=== PATIENT | female | born 1960 | race African-American/Black ===

== ENCOUNTER 2016-12-14 05:20 | Inpatient (IN) | payer MEDICARE, MEDICAID ==
[~2016-12-14] VITALS: Ht 182.9 cm; Wt 90.7 kg
[~2016-12-14 05:20] MED LIST: ATOR10TA PO; Aspirin PO; CHOL400T15 MT; FOLI-43 PO; NICO1PAT6 TD
[2016-12-14] MEDS ORDERED: LACTATED RINGERS 1,000 ML IV SCH (06:45)
[2016-12-14] MEDS ORDERED: FENTANYL CITRATE/PF 50MCG/ML 5ML VIAL ONE (06:55)
[2016-12-14] MEDS ORDERED: HYDROMORPHONE HCL/PF 2MG/ML (OR) ONE (06:55)
[2016-12-14] MEDS ORDERED: GELATIN SPONGE,ABSORBABLE SZ 100 ONE (06:57)
[2016-12-14] MEDS ORDERED: NORMAL SALINE 0.9% 10 ML SYR ONE (06:57)
[2016-12-14] MEDS ORDERED: THROMBIN (BOVINE) 5000 UNITS/VIAL TOP ONE (06:57)
[2016-12-14] MEDS ORDERED: MIDAZOLAM HCL 2 MG/2 ML VIAL ONE (06:57)
[2016-12-14] MEDS ORDERED: BACITRACIN 50,000 UNITS/VIAL ONE (06:58)
[2016-12-14] MEDS ORDERED: LIDOCAINE HCL/EPINEPHRINE 0.5%-EPI 1:200,000 50 ML VIAL INFIL ONE (06:58)
[2016-12-14 07:05] LABS: CHLORIDE 105 mEq/L (98-107)
[2016-12-14 07:09] LABS: CLARITY URINE CLOUDY (CLEAR); COLOR URINE YELLOW (YELLOW); KETONES URINE NEGATIVE (NEGATIVE); LEUKOCYTE ESTERASE URINE NEGATIVE (NEGATIVE); NITRITE URINE NEGATIVE (NEGATIVE); OCCULT BLOOD URINE NEGATIVE (NEGATIVE); PROTEIN URINE NEGATIVE (NEGATIVE); SPECIFIC GRAVITY URINE 1.024 (1.005-1.030)
[2016-12-14 07:11] LABS: CARBON DIOXIDE 29 mEq/L (21-32)
[2016-12-14] MEDS ORDERED: HYDROCODONE/ACETAMINOPHEN 10/325MG TABLET PO PRN (07:45)
[2016-12-14] MEDS ORDERED: CLONIDINE 0.1MG TABLET PO PRN (07:45)
[2016-12-14] MEDS ORDERED: ACETAMINOPHEN 325MG TABLET PO PRN (07:45)
[2016-12-14] MEDS ORDERED: MORPHINE SULFATE 4 MG/ML CPJ (NOT FOR IM USE) IV PRN (07:45)
[2016-12-14] MEDS ORDERED: IPRATROPIUM/ALBUTEROL 0.5-3(2.5)MG/3ML NEB INH PRN (07:45)
[2016-12-14] MEDS ORDERED: NITROGLYCERIN 50MG PREMIX 250 ML IV ONE (08:29)
[2016-12-14] MEDS ORDERED: KCL 20MEQ/100ML PREMIX 100 ML IV NR ×2 (08:30→20:00)
[2016-12-14 08:47] LABS: BASOPHILS % 0.3 % (0.0-2.0); EOSINOPHILS % 2.3 % (0.0-5.0); HEMATOCRIT. 36.7 % (36.0-48.0); HEMOGLOBIN. 12.3 g/dL (12.0-16.0); LYMPHOCYTES % 24.6 % (20.0-50.0); MEAN CORPUSCULAR HEMOGLOBIN 31.4 pg (28.0-32.0); MEAN CORPUSCULAR VOLUME 93.9 fL (81.0-99.0); MEAN PLATELET VOLUME 7.7 fl (7.4-10.4); MONOCYTES % 5.2 % (2.0-8.0); NEUTROPHILS % 67.6 % (40.0-76.0); PLATELET 242 x1000/uL (130-400); RED BLOOD CELL COUNT 3.91 mill/uL (4.2-5.4); RED CELL DISTRIBUTION WIDTH 13.8 % (11.6-14.6)
[2016-12-14] MEDS ORDERED: CEFAZOLIN SODIUM 1000MG/VIAL ONE (10:31)
[2016-12-14] MEDS ORDERED: PROPOFOL 200MG/20ML VIAL IV ONE (10:31)
[2016-12-14] MEDS ORDERED: SODIUM CHLORIDE 0.9% 10ML VIAL ONE (10:32)
[2016-12-14] MEDS ORDERED: LIDOCAINE HCL 1% 20ML VIAL (Pyxis) INJ ONE (10:32)
[2016-12-14] MEDS ORDERED: ROCURONIUM BROMIDE 10MG/ML VIAL 5ML IV ONE (10:32)
[2016-12-14] MEDS ORDERED: PHENYLEPHRINE HCL 10 MG/ML 1ML (IV VIAL) IV ONE (10:32)
[2016-12-14] MEDS ORDERED: ESMOLOL HCL 10MG/ML 10ML VIAL IV ONE (10:32)
[2016-12-14] MEDS ORDERED: CARI350T PO (11:02)
[2016-12-14] MEDS ORDERED: FENTANYL CITRATE/PF 50MCG/ML 2ML VIAL ONE (11:06)
[2016-12-14] MEDS ORDERED: NICARDIPINE 50 MG in SODIUM CHLORIDE 0.9% 230 ML IV PRN (11:30)
[2016-12-14] MEDS ORDERED: NICARDIPINE 100 MG in SODIUM CHLORIDE 0.9% 60 ML IV PRN (11:30)
[2016-12-14] MEDS: DEXT 5%/LACTATED RINGERS 1,000 ML IV SCH (11:35)
[2016-12-14] MEDS ORDERED: NALOXONE INJ IV PRN (11:45)
[2016-12-14] MEDS ORDERED: DIPHENHYDRAMINE INJ IV PRN (11:45)
[2016-12-14] MEDS ORDERED: TRAZ-132 PO (11:48)
[2016-12-14] MEDS ORDERED: HYDR-3933 PO (11:48)
[2016-12-14] MEDS ORDERED: FURO-151 PO (11:48)
[2016-12-14] MEDS ORDERED: BACL-141 PO (11:48)
[2016-12-14] MEDS ORDERED: DULO60CA44 PO (11:48)
[2016-12-14] MEDS ORDERED: POTA10TA15 PO (11:48)
[2016-12-14] MEDS ORDERED: OMEG-95 PO (11:48)
[2016-12-14] MEDS: HYDROMORPHONE PCA 10MG/50ML IV PRN (11:55)
[2016-12-14 13:09] LABS: BASOPHILS % 0.2 % (0.0-2.0); EOSINOPHILS % 0.2 % (0.0-5.0); HEMATOCRIT. 33.4 % (36.0-48.0); HEMOGLOBIN. 11.1 g/dL (12.0-16.0); LYMPHOCYTES % 13.9 % (20.0-50.0); MEAN CORPUSCULAR HEMOGLOBIN 31.2 pg (28.0-32.0); MEAN PLATELET VOLUME 7.9 fl (7.4-10.4); MONOCYTES % 6.1 % (2.0-8.0); NEUTROPHILS % 79.6 % (40.0-76.0); PLATELET 233 x1000/uL (130-400); RED BLOOD CELL COUNT 3.55 mill/uL (4.2-5.4); RED CELL DISTRIBUTION WIDTH 13.6 % (11.6-14.6)
[2016-12-14 13:30] LABS: CARBON DIOXIDE 28 mEq/L (21-32); CHLORIDE 108 mEq/L (98-107)
[2016-12-14] MEDS ORDERED: CEFAZOLIN SODIUM 1000MG/VIAL IV SCH (14:00)
[2016-12-14] MEDS: CEFAZOLIN 1000MG PREMIX 50 ML IV SCH ×2 (14:20→22:19)
[2016-12-14] MEDS: PANTOPRAZOLE SODIUM 40 MG/VIAL IV SCH (14:20)
[2016-12-14] MEDS ORDERED: DEXTROSE 50% WATER 50ML SYRINGE IV PRN (18:00)
[2016-12-14] MEDS ORDERED: BISACODYL 10MG SUPP PR PRN (18:00)
[2016-12-14] MEDS: DEXAMETHASONE 4MG/ML 1ML VIAL IV SCH (18:03)
[2016-12-14] MEDS: BLOOD SUGAR DIAGNOSTIC STRIP TEST SCH (21:00)
[2016-12-14] MEDS: INSULIN LISPRO 100 UNITS/ML SUBCUT SCH (21:00)
[2016-12-15] MEDS: DEXAMETHASONE 4MG/ML 1ML VIAL IV SCH ×5 (00:25→23:33)
[2016-12-15] MEDS: DEXT 5%/LACTATED RINGERS 1,000 ML IV SCH (04:23)
[2016-12-15 05:25] LABS: HEMATOCRIT. 32.8 % (36.0-48.0); HEMOGLOBIN. 11.1 g/dL (12.0-16.0); MEAN CORPUSCULAR HEMOGLOBIN 32.1 pg (28.0-32.0); MEAN CORPUSCULAR VOLUME 94.7 fL (81.0-99.0); MEAN PLATELET VOLUME 8.8 fl (7.4-10.4); PLATELET 209 x1000/uL (130-400); RED BLOOD CELL COUNT 3.47 mill/uL (4.2-5.4)
[2016-12-15] MEDS: CEFAZOLIN 1000MG PREMIX 50 ML IV SCH ×3 (05:26→21:04)
[2016-12-15] MEDS: BLOOD SUGAR DIAGNOSTIC STRIP TEST SCH ×4 (05:34→21:01)
[2016-12-15 06:06] LABS: CARBON DIOXIDE 25 mEq/L (21-32); CHLORIDE 105 mEq/L (98-107)
[2016-12-15] MEDS: INSULIN LISPRO 100 UNITS/ML SUBCUT SCH ×4 (07:00→21:04)
[2016-12-15 07:04] LABS: PLATELET ESTIMATE NORMAL
[2016-12-15] MEDS: PANTOPRAZOLE SODIUM 40 MG/VIAL IV SCH (08:40)
[2016-12-15] MEDS: DIPHENHYDRAMINE 50MG/ML VIAL IV PRN ×2 (08:40→14:48)
[2016-12-15] MEDS: HYDROMORPHONE PCA 10MG/50ML IV PRN (17:14)
[2016-12-15] MEDS: ONDANSETRON INJ IV PRN ×2 (18:22→23:43)
[2016-12-16] MEDS: CEFAZOLIN 1000MG PREMIX 50 ML IV SCH ×2 (05:40→13:14)
[2016-12-16] MEDS: DEXAMETHASONE 4MG/ML 1ML VIAL IV SCH ×3 (05:40→18:39)
[2016-12-16] MEDS: BLOOD SUGAR DIAGNOSTIC STRIP TEST SCH ×4 (06:09→21:26)
[2016-12-16] MEDS: INSULIN LISPRO 100 UNITS/ML SUBCUT SCH ×4 (06:11→21:38)
[2016-12-16] MEDS: DOCUSATE SODIUM 250MG CAPSULE PO NR ×2 (10:30→12:17)
[2016-12-16] MEDS ORDERED: CARISOPRODOL 350 MG TABLET PO PRN (10:30)
[2016-12-16] MEDS ORDERED: HYDROCODONE/ACETAMINOPHEN 5/325MG TABLET PO PRN (10:30)
[2016-12-16] MEDS ORDERED: MORPHINE SULFATE 2 MG/ML CPJ (NOT FOR IM USE) IV PRN (10:30)
[2016-12-16 11:38] LABS: BASOPHILS % 0.1 % (0.0-2.0); HEMATOCRIT. 31.7 % (36.0-48.0); HEMOGLOBIN. 10.7 g/dL (12.0-16.0); LYMPHOCYTES % 10.2 % (20.0-50.0); MEAN CORPUSCULAR HEMOGLOBIN 31.7 pg (28.0-32.0); MEAN CORPUSCULAR VOLUME 93.9 fL (81.0-99.0); MEAN PLATELET VOLUME 8.3 fl (7.4-10.4); MONOCYTES % 6.6 % (2.0-8.0); NEUTROPHILS % 83.1 % (40.0-76.0); PLATELET 229 x1000/uL (130-400); RED BLOOD CELL COUNT 3.37 mill/uL (4.2-5.4); RED CELL DISTRIBUTION WIDTH 13.6 % (11.6-14.6)
[2016-12-16 11:55] LABS: CARBON DIOXIDE 29 mEq/L (21-32); CHLORIDE 103 mEq/L (98-107)
[2016-12-16] MEDS ORDERED: DULOXETINE HCL 20MG DR CAPSULE PO SCH (12:00)
[2016-12-16] MEDS: ONDANSETRON HCL 4MG/2ML VIAL IV PRN ×2 (12:17→20:49)
[2016-12-16] MEDS: OXYCODONE HCL/ACETAMINOPHEN 5/325MG TABLET PO PRN ×2 (12:18→20:50)
[2016-12-16] MEDS: LACTOBACILLUS GG CAPSULE PO SCH (12:23)
[2016-12-16] MEDS: DIPHENHYDRAMINE 50MG/ML VIAL IV PRN ×2 (13:07→17:12)
[2016-12-16] MEDS: DEXT 5%/LACTATED RINGERS 1,000 ML IV SCH (16:28)
[2016-12-16] MEDS: HYDROCODONE/ACETAMINOPHEN 10/325MG TABLET PO PRN (17:13)
[2016-12-17] MEDS: HYDROCODONE/ACETAMINOPHEN 10/325MG TABLET PO PRN (03:01)
[2016-12-17] MEDS: DEXAMETHASONE 4MG/ML 1ML VIAL IV SCH ×4 (03:07→21:13)
[2016-12-17] MEDS: DIPHENHYDRAMINE 50MG/ML VIAL IV PRN ×4 (03:08→21:14)
[2016-12-17] MEDS: BLOOD SUGAR DIAGNOSTIC STRIP TEST SCH ×4 (06:38→21:14)
[2016-12-17] MEDS: OXYCODONE HCL/ACETAMINOPHEN 5/325MG TABLET PO PRN ×3 (06:39→18:19)
[2016-12-17 07:13] LABS: BASOPHILS % 0.1 % (0.0-2.0); HEMATOCRIT. 32.6 % (36.0-48.0); LYMPHOCYTES % 11.1 % (20.0-50.0); MEAN CORPUSCULAR HEMOGLOBIN 31.7 pg (28.0-32.0); MEAN CORPUSCULAR VOLUME 94.1 fL (81.0-99.0); MEAN PLATELET VOLUME 8.8 fl (7.4-10.4); MONOCYTES % 5.3 % (2.0-8.0); NEUTROPHILS % 83.5 % (40.0-76.0); PLATELET 235 x1000/uL (130-400); RED BLOOD CELL COUNT 3.46 mill/uL (4.2-5.4); RED CELL DISTRIBUTION WIDTH 13.9 % (11.6-14.6)
[2016-12-17 07:15] LABS: CARBON DIOXIDE 30 mEq/L (21-32); CHLORIDE 102 mEq/L (98-107)
[2016-12-17] MEDS: LACTOBACILLUS GG CAPSULE PO SCH (08:30)
[2016-12-17] MEDS: DOCUSATE SODIUM 250MG CAPSULE PO SCH (08:30)
[2016-12-17] MEDS: INSULIN LISPRO 100 UNITS/ML SUBCUT SCH ×4 (08:31→22:31)
[2016-12-17] MEDS: DULOXETINE HCL 30MG DR CAPSULE PO SCH (11:12)
[2016-12-17] MEDS: DEXT 5%/LACTATED RINGERS 1,000 ML IV SCH (11:13)
[2016-12-17] MEDS: ONDANSETRON HCL 4MG/2ML VIAL IV PRN (12:14)
[2016-12-17] MEDS: GABAPENTIN 300MG CAPSULE PO SCH (21:14)
[2016-12-18] MEDS: OXYCODONE HCL/ACETAMINOPHEN 5/325MG TABLET PO PRN ×4 (01:08→19:17)
[2016-12-18] MEDS: DEXAMETHASONE 4MG/ML 1ML VIAL IV SCH ×4 (01:08→19:16)
[2016-12-18] MEDS: DIPHENHYDRAMINE 50MG/ML VIAL IV PRN ×3 (03:36→22:45)
[2016-12-18] MEDS: BLOOD SUGAR DIAGNOSTIC STRIP TEST SCH ×4 (07:08→21:57)
[2016-12-18] MEDS: INSULIN LISPRO 100 UNITS/ML SUBCUT SCH ×4 (07:14→23:40)
[2016-12-18] MEDS: DULOXETINE HCL 30MG DR CAPSULE PO SCH (08:41)
[2016-12-18] MEDS: LACTOBACILLUS GG CAPSULE PO SCH (08:41)
[2016-12-18] MEDS: DOCUSATE SODIUM 250MG CAPSULE PO SCH (08:41)
[2016-12-18] MEDS: DEXT 5%/LACTATED RINGERS 1,000 ML IV SCH (11:24)
[2016-12-18] MEDS ORDERED: NA PHOS,M-B/NA PHOS,DI-BA ENEMA 118ML PR SCH (12:30)
[2016-12-18] MEDS ORDERED: BISACODYL 10MG SUPP PR PRN (12:30)
[2016-12-18] MEDS: LACTULOSE 20G/30ML UDC PO SCH ×3 (13:16→21:57)
[2016-12-18] MEDS: DOCUSATE SODIUM 100MG CAPSULE PO SCH (18:17)
[2016-12-18] MEDS ORDERED: POLYETHYLENE GLYCOL 3350 (17GM) 1 DOSE PACK PO SCH (21:00)
[2016-12-18] MEDS: GABAPENTIN 300MG CAPSULE PO SCH (21:57)
[2016-12-18] MEDS: ONDANSETRON HCL 4MG/2ML VIAL IV PRN (22:45)
[2016-12-19] MEDS: DEXAMETHASONE 4MG/ML 1ML VIAL IV SCH ×3 (02:00→12:52)
[2016-12-19] MEDS: OXYCODONE HCL/ACETAMINOPHEN 5/325MG TABLET PO PRN ×4 (02:01→17:50)
[2016-12-19] MEDS: DIPHENHYDRAMINE 50MG/ML VIAL IV PRN (02:19)
[2016-12-19] MEDS: BLOOD SUGAR DIAGNOSTIC STRIP TEST SCH ×3 (06:56→17:48)
[2016-12-19] MEDS: INSULIN LISPRO 100 UNITS/ML SUBCUT SCH ×3 (06:56→17:47)
[2016-12-19] MEDS ORDERED: NA PHOS,M-B/NA PHOS,DI-BA ENEMA 118ML PR PRN (09:00)
[2016-12-19] MEDS: DOCUSATE SODIUM 250MG CAPSULE PO SCH (09:34)
[2016-12-19] MEDS: DULOXETINE HCL 30MG DR CAPSULE PO SCH (09:35)
[2016-12-19] MEDS: LACTOBACILLUS GG CAPSULE PO SCH (09:35)
[2016-12-19] MEDS: DOCUSATE SODIUM 100MG CAPSULE PO SCH ×2 (09:35→17:00)
[2016-12-19 17:50] VITALS: BP 123/65
== END 2016-12-19 18:20 | DRG 29 ==
LOC: OR 05:20 → MICUSO 05:21 → 6EST 12-16 15:00
PROVIDERS: ADMIT Neurological Surgery; ATTEND Neurological Surgery
PROC: 00NX0ZZ Release Thoracic Spinal Cord, Open Approach (ICD-10-PCS; 2016-12-14)
PROC: 00BX0ZX Excision of Thoracic Spinal Cord, Open Approach, Diagnostic (ICD-10-PCS; principal; 2016-12-14 07:00)
DX: D32.1 Benign neoplasm of spinal meninges (principal); G95.29 Other cord compression; C81.90 Hodgkin lymphoma, unspecified, unspecified site; G82.20 Paraplegia, unspecified; D49.2 Neoplasm of unspecified behavior of bone, soft tissue, and skin; I50.9 Heart failure, unspecified; E87.6 Hypokalemia; F20.9 Schizophrenia, unspecified; F32.9 Major depressive disorder, single episode, unspecified; G89.29 Other chronic pain; M54.5 Low back pain; K59.00 Constipation, unspecified; M79.89 Other specified soft tissue disorders; I08.0 Rheumatic disorders of both mitral and aortic valves; J44.9 Chronic obstructive pulmonary disease, unspecified; M79.7 Fibromyalgia; R32 Unspecified urinary incontinence; Z79.82 Long term (current) use of aspirin; Z79.899 Other long term (current) drug therapy; Z82.49 Family history of ischemic heart disease and other diseases of the circulatory system; Z99.3 Dependence on wheelchair; Z92.3 Personal history of irradiation; Z87.891 Personal history of nicotine dependence; Z88.5 Allergy status to narcotic agent; Z88.6 Allergy status to analgesic agent; Z88.8 Allergy status to other drugs, medicaments and biological substances; Z90.710 Acquired absence of both cervix and uterus; Z79.1 Long term (current) use of non-steroidal anti-inflammatories (NSAID)
CPT/HCPCS: 36415; 72070; 72157; 80048; 81001; 82962; 85025; 86850; 86900; 88304; 88305; 88311; 88331; 93970; 97110; 97162; 97530; A4216; A6261; C1893; C9113; J0690; J1100; J1170; J1200; J1815; J2250; J2370; J2405; J2704; J3010; J3480; J3490; J7120; J7121

== ENCOUNTER 2016-12-19 17:30 | Inpatient (IN) | payer MEDICARE ==
[~2016-12-19] VITALS: Ht 182.9 cm; Wt 90.7 kg
[~2016-12-19 17:30] MED LIST changes: +BACL-141 PO; +CARI350T PO; +DULO60CA44 PO; +FURO-151 PO; +HYDR-3933 PO; +OMEG-95 PO; +POTA10TA15 PO; +TRAZ-132 PO
[2016-12-19 20:00] VITALS: BP 143/77
[2016-12-19] MEDS ORDERED: ACETAMINOPHEN 325MG TABLET PO PRN (20:30)
[2016-12-19] MEDS ORDERED: DEXTROSE 50% WATER 50ML SYRINGE IV PRN (20:30)
[2016-12-19] MEDS ORDERED: HYDROCODONE/ACETAMINOPHEN 10/325MG TABLET PO PRN (20:30)
[2016-12-19] MEDS ORDERED: CLONIDINE 0.1MG TABLET PO PRN (20:30)
[2016-12-19] MEDS ORDERED: BISACODYL 10MG SUPP PR PRN (20:30)
[2016-12-19] MEDS ORDERED: CARISOPRODOL 350 MG TABLET PO PRN (20:30)
[2016-12-19] MEDS: POLYETHYLENE GLYCOL 3350 (17GM) 1 DOSE PACK PO SCH (21:00)
[2016-12-19] MEDS ORDERED: NA PHOS,M-B/NA PHOS,DI-BA ENEMA 118ML PR PRN (21:00)
[2016-12-19] MEDS: DIPHENHYDRAMINE 25MG CAPSULE PO PRN (21:26)
[2016-12-19] MEDS: GABAPENTIN 300MG CAPSULE PO SCH (21:26)
[2016-12-19] MEDS: BLOOD SUGAR DIAGNOSTIC STRIP TEST SCH (21:26)
[2016-12-19] MEDS: INSULIN LISPRO 100 UNITS/ML SUBCUT SCH (21:43)
[2016-12-19] MEDS: DEXT 5%/LACTATED RINGERS 1,000 ML IV SCH (22:10)
[2016-12-19] MEDS: IPRATROPIUM/ALBUTEROL 0.5-3(2.5)MG/3ML NEB HHN PRN (23:20)
[2016-12-20] MEDS: DEXAMETHASONE 4MG TABLET PO SCH ×5 (01:42→23:25)
[2016-12-20] MEDS: OXYCODONE HCL/ACETAMINOPHEN 5/325MG TABLET PO PRN ×4 (01:51→21:12)
[2016-12-20 06:03] LABS: BASOPHILS % 0.1 % (0.0-2.0); EOSINOPHILS % 0.2 % (0.0-5.0); HEMATOCRIT. 33.3 % (36.0-48.0); HEMOGLOBIN. 11.2 g/dL (12.0-16.0); MEAN CORPUSCULAR HEMOGLOBIN 31.6 pg (28.0-32.0); MEAN CORPUSCULAR VOLUME 94.2 fL (81.0-99.0); NEUTROPHILS % 81.7 % (40.0-76.0); PLATELET 276 x1000/uL (130-400); RED BLOOD CELL COUNT 3.54 mill/uL (4.2-5.4); RED CELL DISTRIBUTION WIDTH 13.3 % (11.6-14.6)
[2016-12-20] MEDS: DIPHENHYDRAMINE 25MG CAPSULE PO PRN ×2 (06:22→18:00)
[2016-12-20] MEDS: BLOOD SUGAR DIAGNOSTIC STRIP TEST SCH ×4 (06:22→20:46)
[2016-12-20] MEDS: INSULIN LISPRO 100 UNITS/ML SUBCUT SCH ×4 (06:23→20:46)
[2016-12-20 06:34] LABS: CARBON DIOXIDE 31 mEq/L (21-32); CHLORIDE 99 mEq/L (98-107)
[2016-12-20] MEDS: ONDANSETRON HCL 4MG TABLET PO PRN ×2 (06:44→15:54)
[2016-12-20 07:22] LABS: PREALBUMIN 29.1 mg/dL (20.0-40.0)
[2016-12-20 08:00] VITALS: BP 106/57
[2016-12-20] MEDS: DULOXETINE HCL 30MG DR CAPSULE PO SCH (08:09)
[2016-12-20] MEDS: DOCUSATE SODIUM 250MG CAPSULE PO SCH (08:09)
[2016-12-20] MEDS: DOCUSATE SODIUM 100MG CAPSULE PO SCH ×2 (08:10→17:15)
[2016-12-20] MEDS: LACTOBACILLUS GG CAPSULE PO SCH (08:10)
[2016-12-20] MEDS: IPRATROPIUM/ALBUTEROL 0.5-3(2.5)MG/3ML NEB HHN PRN (11:15)
[2016-12-20] MEDS: LORATADINE 10MG TABLET PO SCH (14:27)
[2016-12-20] MEDS: DEXT 5%/LACTATED RINGERS 1,000 ML IV SCH (14:28)
[2016-12-20 18:35] LABS: CLARITY URINE CLEAR (CLEAR); COLOR URINE YELLOW (YELLOW); GLUCOSE URINE NEGATIVE (NEGATIVE); KETONES URINE NEGATIVE (NEGATIVE); LEUKOCYTE ESTERASE URINE TRACE (NEGATIVE); NITRITE URINE NEGATIVE (NEGATIVE); OCCULT BLOOD URINE NEGATIVE (NEGATIVE); PH URINE 7.5 (4.5-8.0); PROTEIN URINE NEGATIVE (NEGATIVE); UROBILINOGEN URINE 0.2 E.U./dL (0.2-1.0)
[2016-12-20 20:00] VITALS: BP 121/72
[2016-12-20] MEDS: POLYETHYLENE GLYCOL 3350 (17GM) 1 DOSE PACK PO SCH (20:46)
[2016-12-20] MEDS: GABAPENTIN 300MG CAPSULE PO SCH (20:46)
[2016-12-20] MEDS ORDERED: PROMETHAZINE/DEXTROMETHORPHAN 6.25-15MG/5ML BOTTLE 120ML PO PRN (21:00)
[2016-12-20] MEDS: GUAIFENESIN-DM 200MG-20MG/10ML UDC PO PRN (21:36)
[2016-12-21] MEDS: DEXAMETHASONE 4MG TABLET PO SCH ×2 (05:46→11:25)
[2016-12-21] MEDS: OXYCODONE HCL/ACETAMINOPHEN 5/325MG TABLET PO PRN ×3 (05:55→19:45)
[2016-12-21] MEDS: DEXT 5%/LACTATED RINGERS 1,000 ML IV SCH (06:22)
[2016-12-21] MEDS: BLOOD SUGAR DIAGNOSTIC STRIP TEST SCH ×4 (06:25→20:41)
[2016-12-21] MEDS: INSULIN LISPRO 100 UNITS/ML SUBCUT SCH ×4 (06:48→20:40)
[2016-12-21 08:00] VITALS: BP 132/71
[2016-12-21] MEDS: DIPHENHYDRAMINE 25MG CAPSULE PO PRN ×2 (08:41→22:27)
[2016-12-21] MEDS: DULOXETINE HCL 30MG DR CAPSULE PO SCH (08:41)
[2016-12-21] MEDS: GUAIFENESIN-DM 200MG-20MG/10ML UDC PO PRN ×3 (08:41→22:27)
[2016-12-21] MEDS: DOCUSATE SODIUM 100MG CAPSULE PO SCH ×2 (08:41→17:00)
[2016-12-21] MEDS: DOCUSATE SODIUM 250MG CAPSULE PO SCH (08:41)
[2016-12-21] MEDS: LACTOBACILLUS GG CAPSULE PO SCH (08:42)
[2016-12-21] MEDS: LORATADINE 10MG TABLET PO SCH (08:46)
[2016-12-21] MEDS ORDERED: DEXAMETHASONE 4MG TABLET PO SCH (12:00)
[2016-12-21] MEDS: ONDANSETRON HCL 4MG TABLET PO PRN (13:37)
[2016-12-21 20:00] VITALS: BP 118/59
[2016-12-21] MEDS: POLYETHYLENE GLYCOL 3350 (17GM) 1 DOSE PACK PO SCH (20:40)
[2016-12-21] MEDS: GABAPENTIN 300MG CAPSULE PO SCH (20:40)
[2016-12-21] MEDS: MUPIROCIN 2% OINT 22GM NS SCH (20:41)
[2016-12-22] VITALS (13 sets, daily range): BP systolic 79–132; BP diastolic 47–77
[2016-12-22] MEDS: OXYCODONE HCL/ACETAMINOPHEN 5/325MG TABLET PO PRN (06:06)
[2016-12-22] MEDS: GUAIFENESIN-DM 200MG-20MG/10ML UDC PO PRN ×3 (06:06→22:13)
[2016-12-22] MEDS: BLOOD SUGAR DIAGNOSTIC STRIP TEST SCH ×4 (06:07→21:59)
[2016-12-22 06:38] LABS: HEMATOCRIT. 35.8 % (36.0-48.0); HEMOGLOBIN. 12.2 g/dL (12.0-16.0); MEAN CORPUSCULAR HEMOGLOBIN 31.8 pg (28.0-32.0); MEAN CORPUSCULAR VOLUME 93.3 fL (81.0-99.0); MEAN PLATELET VOLUME 7.8 fl (7.4-10.4); PLATELET 335 x1000/uL (130-400); RED BLOOD CELL COUNT 3.83 mill/uL (4.2-5.4); RED CELL DISTRIBUTION WIDTH 13.9 % (11.6-14.6)
[2016-12-22 07:13] LABS: CARBON DIOXIDE 30 mEq/L (21-32); CHLORIDE 96 mEq/L (98-107)
[2016-12-22] MEDS: INSULIN LISPRO 100 UNITS/ML SUBCUT SCH ×4 (07:18→22:06)
[2016-12-22 07:25] LABS: HDL CHOLESTEROL 43 mg/dL (40-59); LDL CHOLESTEROL 101 mg/dL (5-100); PHOSPHORUS 2.5 mg/dL (2.5-4.9); TOTAL IRON BINDING CAPACITY 299 ug/dL (250-450)
[2016-12-22] MEDS ORDERED: LEVOFLOXACIN 500MG TABLET PO NR (08:00)
[2016-12-22 08:04] LABS: PLATELET ESTIMATE NORMAL
[2016-12-22] MEDS ORDERED: OXYCODONE HCL 5MG TABLET PO PRN ×2 (08:15)
[2016-12-22] MEDS ORDERED: NA PHOS,M-B/NA PHOS,DI-BA ENEMA 118ML PR PRN (09:00)
[2016-12-22] MEDS: OXYCODONE HCL 5MG TABLET PO SCH ×3 (09:00→17:57)
[2016-12-22] MEDS ORDERED: BISACODYL 10MG SUPP PR SCH (09:00)
[2016-12-22 09:09] LABS: FOLIC ACID (FOLATE) SERUM 8.3 ng/mL (>5.38)
[2016-12-22] MEDS: LACTOBACILLUS GG CAPSULE PO SCH (09:52)
[2016-12-22] MEDS: DEXAMETHASONE 4MG TABLET PO SCH (09:52)
[2016-12-22] MEDS: DULOXETINE HCL 30MG DR CAPSULE PO SCH (09:52)
[2016-12-22] MEDS: MUPIROCIN 2% OINT 22GM NS SCH ×2 (09:53→21:59)
[2016-12-22] MEDS: DOCUSATE SODIUM 100MG CAPSULE PO SCH ×2 (09:53→17:56)
[2016-12-22] MEDS ORDERED: SODIUM CHLORIDE 0.9% 500 ML IV NR (14:30)
[2016-12-22] MEDS: AMOXICILLIN 500 MG CAPSULE PO SCH (21:58)
[2016-12-22] MEDS: POLYETHYLENE GLYCOL 3350 (17GM) 1 DOSE PACK PO SCH (21:59)
[2016-12-22] MEDS: GABAPENTIN 300MG CAPSULE PO SCH (21:59)
[2016-12-23] MEDS: AMOXICILLIN 500 MG CAPSULE PO SCH ×3 (06:14→21:00)
[2016-12-23] MEDS: BLOOD SUGAR DIAGNOSTIC STRIP TEST SCH ×4 (06:14→20:39)
[2016-12-23] MEDS: INSULIN LISPRO 100 UNITS/ML SUBCUT SCH ×4 (06:14→21:02)
[2016-12-23 06:38] LABS: BASOPHILS % 0.2 % (0.0-2.0); EOSINOPHILS % 0.4 % (0.0-5.0); HEMATOCRIT. 37.1 % (36.0-48.0); HEMOGLOBIN. 12.5 g/dL (12.0-16.0); LYMPHOCYTES % 19.6 % (20.0-50.0); MEAN CORPUSCULAR HEMOGLOBIN 31.3 pg (28.0-32.0); MEAN CORPUSCULAR VOLUME 92.9 fL (81.0-99.0); MEAN PLATELET VOLUME 7.4 fl (7.4-10.4); MONOCYTES % 9.9 % (2.0-8.0); NEUTROPHILS % 69.9 % (40.0-76.0); PLATELET 345 x1000/uL (130-400); RED BLOOD CELL COUNT 3.99 mill/uL (4.2-5.4); RED CELL DISTRIBUTION WIDTH 13.7 % (11.6-14.6)
[2016-12-23] MEDS ORDERED: SODIUM CHLORIDE 0.9% 1,000 ML IV ONE (07:30)
[2016-12-23 08:00] VITALS: BP 106/50
[2016-12-23 08:06] LABS: CARBON DIOXIDE 30 mEq/L (21-32); CHLORIDE 98 mEq/L (98-107)
[2016-12-23] MEDS: GABAPENTIN 300MG CAPSULE PO SCH ×2 (09:00→17:58)
[2016-12-23] MEDS: LACTOBACILLUS GG CAPSULE PO SCH (09:00)
[2016-12-23] MEDS: DEXAMETHASONE 4MG TABLET PO SCH (09:00)
[2016-12-23] MEDS: OXYCODONE HCL 5MG TABLET PO SCH ×3 (09:00→17:00)
[2016-12-23] MEDS: MUPIROCIN 2% OINT 22GM NS SCH ×2 (09:00→21:01)
[2016-12-23] MEDS: DOCUSATE SODIUM 100MG CAPSULE PO SCH ×2 (09:00→17:58)
[2016-12-23] MEDS ORDERED: MELOXICAM 7.5MG TABLET PO SCH (09:00)
[2016-12-23] MEDS ORDERED: LEVOFLOXACIN 250MG TABLET PO SCH ×2 (11:00)
[2016-12-23] MEDS: GUAIFENESIN-DM 200MG-20MG/10ML UDC PO PRN (11:40)
[2016-12-23] MEDS: MELOXICAM 7.5MG TABLET PO SCH (13:30)
[2016-12-23] MEDS ORDERED: SODIUM CHLORIDE 0.9% 250 ML IV NR (20:00)
[2016-12-23 20:14] VITALS: BP 73/39
[2016-12-23] MEDS ORDERED: SODIUM CHLORIDE 0.9% 1,000 ML IV NR (20:30)
[2016-12-23] MEDS: POLYETHYLENE GLYCOL 3350 (17GM) 1 DOSE PACK PO SCH (21:00)
[2016-12-23 21:20] VITALS: BP 91/43
[2016-12-23 23:30] VITALS: BP 86/47
[2016-12-24 04:13] VITALS: BP 109/50
[2016-12-24] MEDS: AMOXICILLIN 500 MG CAPSULE PO SCH (05:50)
[2016-12-24] MEDS: BLOOD SUGAR DIAGNOSTIC STRIP TEST SCH (05:50)
[2016-12-24] MEDS: INSULIN LISPRO 100 UNITS/ML SUBCUT SCH (07:01)
[2016-12-24 07:57] VITALS: BP 94/50
[2016-12-24] MEDS: MUPIROCIN 2% OINT 22GM NS SCH (08:38)
[2016-12-24] MEDS: DEXAMETHASONE 4MG TABLET PO SCH (08:39)
[2016-12-24] MEDS: GABAPENTIN 300MG CAPSULE PO SCH (08:39)
[2016-12-24] MEDS: MELOXICAM 7.5MG TABLET PO SCH (08:39)
[2016-12-24] MEDS: LACTOBACILLUS GG CAPSULE PO SCH (08:39)
[2016-12-24] MEDS: DOCUSATE SODIUM 100MG CAPSULE PO SCH (08:39)
[2016-12-24 08:42] VITALS: BP 94/50
[2016-12-24] MEDS: OXYCODONE HCL 5MG TABLET PO SCH (08:42)
[2016-12-24 09:27] LABS: CARBON DIOXIDE 30 mEq/L (21-32); CHLORIDE 101 mEq/L (98-107)
[2016-12-24] MEDS ORDERED: ACETAMINOPHEN 500MG TABLET PO PRN (09:30)
[2016-12-24] MEDS ORDERED: SODIUM CHLORIDE 0.45% 1,000 ML IV SCH (10:45)
[2016-12-24] MEDS: IPRATROPIUM/ALBUTEROL 0.5-3(2.5)MG/3ML NEB HHN PRN (10:58)
[2016-12-24 11:20] LABS: CREATINE KINASE 28 IU/L (26-192)
[2016-12-24 12:00] LABS: CREATINE KINASE MB FRACTION < 0.5 ng/mL (0.5-3.6); TROPONIN I < 0.02 ng/mL (0.00-0.04)
[2016-12-26 08:11] LABS: 25-HYDROXY VITAMIN D3 12 ng/mL (.)
== END 2016-12-24 11:12 | disposition short-term general hospital (02) | DRG 55 ==
PROVIDERS: ADMIT Physical Medicine & Rehabilitation Spinal Cord Injury Medicine; ATTEND Internal Medicine
DX: D32.1 Benign neoplasm of spinal meninges (principal); G82.20 Paraplegia, unspecified; N39.0 Urinary tract infection, site not specified; G95.29 Other cord compression; D72.829 Elevated white blood cell count, unspecified; F20.9 Schizophrenia, unspecified; F32.9 Major depressive disorder, single episode, unspecified; I50.9 Heart failure, unspecified; R26.9 Unspecified abnormalities of gait and mobility; R73.9 Hyperglycemia, unspecified; M79.7 Fibromyalgia; K80.20 Calculus of gallbladder without cholecystitis without obstruction; I11.0 Hypertensive heart disease with heart failure; E78.5 Hyperlipidemia, unspecified; I95.9 Hypotension, unspecified; B95.62 Methicillin resistant Staphylococcus aureus infection as the cause of diseases classified elsewhere; Z85.71 Personal history of Hodgkin lymphoma; Z92.3 Personal history of irradiation; Z90.710 Acquired absence of both cervix and uterus; Z88.6 Allergy status to analgesic agent; Z91.018 Allergy to other foods; Z82.49 Family history of ischemic heart disease and other diseases of the circulatory system
CPT/HCPCS: 36415; 76705; 80048; 80053; 80061; 81001; 82270; 82306; 82550; 82553; 82607; 82728; 82746; 82962; 83036; 83540; 83550; 83735; 84100; 84134; 84443; 84484; 84630; 85025; 87077; 87086; 87186; 92610; 93005; 93970; 94640; 97110; 97112; 97163; 97166; 97530; 97535; A4565; C1893; J1815; J7030; J7040; J7050; J7070; J7121; J7620; J8540; Q0162; Q0163; A5200

== ENCOUNTER 2016-12-24 11:39 | Inpatient (IN) | payer MEDICARE ==
[~2016-12-24] VITALS: Ht 152.4 cm; Wt 88.0 kg
[2016-12-24] MEDS ORDERED: LORAZEPAM 0.5MG TABLET PO PRN (12:15)
[2016-12-24] MEDS ORDERED: DOCUSATE SODIUM 100MG CAPSULE PO PRN (12:15)
[2016-12-24] MEDS ORDERED: ONDANSETRON HCL 4MG/2ML VIAL IV PRN (12:15)
[2016-12-24] MEDS ORDERED: CLONIDINE 0.1MG TABLET PO PRN (12:15)
[2016-12-24] MEDS ORDERED: MAGNESIUM/ALUMINUM HYDROXIDE/SIMETHICONE 30ML UDC PO PRN (12:15)
[2016-12-24] MEDS ORDERED: ACETAMINOPHEN 325MG TABLET PO PRN (12:15)
[2016-12-24] MEDS ORDERED: POLYETHYLENE GLYCOL 3350 (17GM) 1 DOSE PACK PO PRN (12:15)
[2016-12-24] MEDS ORDERED: DIPHENHYDRAMINE 50MG/ML VIAL IV PRN (12:15)
[2016-12-24] MEDS ORDERED: IPRATROPIUM/ALBUTEROL 0.5-3(2.5)MG/3ML NEB INH PRN (13:00)
[2016-12-24 13:44] VITALS: BP 98/83
[2016-12-24 13:48] VITALS: BP 98/83
[2016-12-24] MEDS: OXYCODONE HCL 5MG TABLET PO PRN ×2 (15:22→21:12)
[2016-12-24] MEDS: BACLOFEN 10MG TABLET PO SCH ×2 (15:22→21:12)
[2016-12-24] MEDS: GUAIFENESIN 200MG/10ML SUGAR FREE UDC PO PRN ×2 (15:22→21:12)
[2016-12-24] MEDS: ENOXAPARIN 40MG/0.4ML SYR SUBCUT SCH (15:38)
[2016-12-24] MEDS: SODIUM CHLORIDE 0.9% 1,000 ML IV SCH ×2 (15:41→21:12)
[2016-12-24 16:00] VITALS: BP 118/60
[2016-12-24 18:00] VITALS: BP 125/73
[2016-12-24 20:00] VITALS: BP 129/61
[2016-12-24] MEDS: GABAPENTIN 300MG CAPSULE PO SCH (21:11)
[2016-12-24] MEDS: FAMOTIDINE 20MG TABLET PO SCH (21:12)
[2016-12-24] MEDS: SENNOSIDES/DOCUSATE SOD 8.6/50MG TABLET PO SCH (21:12)
[2016-12-24 22:04] VITALS: BP 112/62
[2016-12-24] MEDS: TRAZODONE HCL 100MG TABLET PO PRN (23:25)
[2016-12-25] VITALS (19 sets, daily range): BP systolic 88–135; BP diastolic 36–77
[2016-12-25] MEDS: IPRATROPIUM/ALBUTEROL 0.5-3(2.5)MG/3ML NEB HHN SCH (01:34)
[2016-12-25 06:28] LABS: HEMATOCRIT. 31.7 % (36.0-48.0); HEMOGLOBIN. 10.7 g/dL (12.0-16.0); MEAN CORPUSCULAR HEMOGLOBIN 31.6 pg (28.0-32.0); MEAN CORPUSCULAR VOLUME 93.2 fL (81.0-99.0); MEAN PLATELET VOLUME 7.3 fl (7.4-10.4); PLATELET 328 x1000/uL (130-400); RED CELL DISTRIBUTION WIDTH 13.8 % (11.6-14.6)
[2016-12-25] MEDS: BACLOFEN 10MG TABLET PO SCH ×3 (06:47→21:07)
[2016-12-25 07:21] LABS: CHLORIDE 106 mEq/L (98-107)
[2016-12-25 07:26] LABS: CARBON DIOXIDE 24 mEq/L (21-32); PHOSPHORUS 2.4 mg/dL (2.5-4.9)
[2016-12-25] MEDS: ASPIRIN 325MG EC TABLET PO SCH (09:40)
[2016-12-25] MEDS: CITALOPRAM HYDROBROMIDE 10MG TABLET PO SCH (09:40)
[2016-12-25] MEDS: ENOXAPARIN 40MG/0.4ML SYR SUBCUT SCH (09:42)
[2016-12-25] MEDS: GABAPENTIN 300MG CAPSULE PO SCH ×2 (09:44→21:07)
[2016-12-25] MEDS: SODIUM CHLORIDE 0.9% 1,000 ML IV SCH ×2 (09:46→21:07)
[2016-12-25] MEDS: GUAIFENESIN 200MG/10ML SUGAR FREE UDC PO PRN ×3 (09:57→23:25)
[2016-12-25] MEDS ORDERED: DEXAMETHASONE 4MG/ML 1ML VIAL IV NR (11:30)
[2016-12-25] MEDS ORDERED: LORAZEPAM 0.5MG TABLET PO PRN (12:15)
[2016-12-25] MEDS ORDERED: SODIUM CHLORIDE 0.9% 10ML VIAL ONE (12:43)
[2016-12-25] MEDS ORDERED: IOHEXOL-300 100 ML BOTTLE ONE (12:43)
[2016-12-25 14:10] LABS: GLUCOSE URINE NEGATIVE (NEGATIVE); KETONES URINE NEGATIVE (NEGATIVE); LEUKOCYTE ESTERASE URINE NEGATIVE (NEGATIVE); NITRITE URINE NEGATIVE (NEGATIVE); OCCULT BLOOD URINE 2+ (NEGATIVE); PROTEIN URINE NEGATIVE (NEGATIVE); SPECIFIC GRAVITY URINE 1.016 (1.005-1.030)
[2016-12-25 14:23] LABS: CLARITY URINE CLEAR (CLEAR); COLOR URINE YELLOW (YELLOW)
[2016-12-25 16:18] LABS: CREATINE KINASE 26 IU/L (26-192); CREATINE KINASE MB FRACTION < 0.5 ng/mL (0.5-3.6); TROPONIN I < 0.02 ng/mL (0.00-0.04)
[2016-12-25] MEDS: OXYCODONE HCL 5MG TABLET PO PRN (17:27)
[2016-12-25] MEDS: DEXAMETHASONE 2MG TABLET PO SCH (17:27)
[2016-12-25] MEDS: SENNOSIDES/DOCUSATE SOD 8.6/50MG TABLET PO SCH (21:07)
[2016-12-25] MEDS: FAMOTIDINE 20MG TABLET PO SCH (21:07)
[2016-12-25 23:23] LABS: CREATINE KINASE 26 IU/L (26-192); CREATINE KINASE MB FRACTION < 0.5 ng/mL (0.5-3.6); TROPONIN I < 0.02 ng/mL (0.00-0.04)
[2016-12-25] MEDS: TRAZODONE HCL 100MG TABLET PO PRN (23:25)
[2016-12-26] VITALS (11 sets, daily range): BP systolic 91–139; BP diastolic 44–69
[2016-12-26] MEDS: BACLOFEN 10MG TABLET PO SCH ×3 (06:11→21:26)
[2016-12-26] MEDS: OXYCODONE HCL 5MG TABLET PO PRN ×3 (06:12→18:18)
[2016-12-26] MEDS: DEXAMETHASONE 2MG TABLET PO SCH ×2 (07:05→18:17)
[2016-12-26 07:06] LABS: HEMATOCRIT. 32.3 % (36.0-48.0); HEMOGLOBIN. 10.8 g/dL (12.0-16.0); MEAN CORPUSCULAR HEMOGLOBIN 31.4 pg (28.0-32.0); MEAN CORPUSCULAR VOLUME 93.9 fL (81.0-99.0); MEAN PLATELET VOLUME 7.4 fl (7.4-10.4); PLATELET 374 x1000/uL (130-400); RED BLOOD CELL COUNT 3.44 mill/uL (4.2-5.4); RED CELL DISTRIBUTION WIDTH 14.1 % (11.6-14.6)
[2016-12-26 07:16] LABS: CHLORIDE 107 mEq/L (98-107)
[2016-12-26 07:25] LABS: CARBON DIOXIDE 24 mEq/L (21-32); CREATINE KINASE 24 IU/L (26-192); CREATINE KINASE MB FRACTION 1.1 ng/mL (0.5-3.6); TROPONIN I < 0.02 ng/mL (0.00-0.04)
[2016-12-26] MEDS: IPRATROPIUM/ALBUTEROL 0.5-3(2.5)MG/3ML NEB HHN SCH ×2 (08:01→15:01)
[2016-12-26] MEDS: GABAPENTIN 300MG CAPSULE PO SCH ×2 (08:45→21:23)
[2016-12-26] MEDS: CITALOPRAM HYDROBROMIDE 10MG TABLET PO SCH (08:45)
[2016-12-26] MEDS: ASPIRIN 325MG EC TABLET PO SCH (08:45)
[2016-12-26] MEDS: SODIUM CHLORIDE 0.9% 1,000 ML IV SCH ×2 (08:45→14:08)
[2016-12-26] MEDS: ENOXAPARIN 40MG/0.4ML SYR SUBCUT SCH (08:46)
[2016-12-26] MEDS: GUAIFENESIN 200MG/10ML SUGAR FREE UDC PO PRN ×2 (09:40→18:17)
[2016-12-26 11:51] LABS: PLATELET ESTIMATE NORMAL
[2016-12-26] MEDS ORDERED: NA PHOS,M-B/NA PHOS,DI-BA ENEMA 118ML PR PRN (13:00)
[2016-12-26] MEDS: SENNOSIDES/DOCUSATE SOD 8.6/50MG TABLET PO SCH (21:00)
[2016-12-26] MEDS: POLYETHYLENE GLYCOL 3350 (17GM) 1 DOSE PACK PO SCH (21:23)
[2016-12-26] MEDS: FAMOTIDINE 20MG TABLET PO SCH (21:23)
[2016-12-26] MEDS: TRAZODONE HCL 100MG TABLET PO PRN (21:36)
[2016-12-27] VITALS (12 sets, daily range): BP systolic 106–146; BP diastolic 50–75
[2016-12-27] MEDS: IPRATROPIUM/ALBUTEROL 0.5-3(2.5)MG/3ML NEB HHN SCH ×3 (01:00→16:23)
[2016-12-27] MEDS: SODIUM CHLORIDE 0.9% 1,000 ML IV SCH ×3 (04:33→22:13)
[2016-12-27] MEDS: DEXAMETHASONE 2MG TABLET PO SCH ×2 (06:08→17:18)
[2016-12-27] MEDS: BACLOFEN 10MG TABLET PO SCH ×3 (06:12→21:59)
[2016-12-27 06:37] LABS: CARBON DIOXIDE 26 mEq/L (21-32); CHLORIDE 108 mEq/L (98-107); PHOSPHORUS 2.9 mg/dL (2.5-4.9)
[2016-12-27 06:44] LABS: BASOPHILS % 0.1 % (0.0-2.0); EOSINOPHILS % 0.1 % (0.0-5.0); HEMATOCRIT. 29.9 % (36.0-48.0); HEMOGLOBIN. 10.2 g/dL (12.0-16.0); LYMPHOCYTES % 16.5 % (20.0-50.0); MEAN CORPUSCULAR HEMOGLOBIN 31.8 pg (28.0-32.0); MEAN CORPUSCULAR VOLUME 93.5 fL (81.0-99.0); MEAN PLATELET VOLUME 7.4 fl (7.4-10.4); MONOCYTES % 5.4 % (2.0-8.0); NEUTROPHILS % 77.9 % (40.0-76.0); PLATELET 375 x1000/uL (130-400); RED CELL DISTRIBUTION WIDTH 14.4 % (11.6-14.6)
[2016-12-27] MEDS: GUAIFENESIN 200MG/10ML SUGAR FREE UDC PO PRN ×2 (08:10→17:23)
[2016-12-27] MEDS: GABAPENTIN 300MG CAPSULE PO SCH ×2 (08:11→21:59)
[2016-12-27] MEDS: BISACODYL 10MG SUPP PR SCH (08:11)
[2016-12-27] MEDS: ASPIRIN 325MG EC TABLET PO SCH (08:11)
[2016-12-27] MEDS: OXYCODONE HCL 5MG TABLET PO PRN ×2 (08:11→17:24)
[2016-12-27] MEDS: CITALOPRAM HYDROBROMIDE 10MG TABLET PO SCH (08:11)
[2016-12-27] MEDS: ENOXAPARIN 40MG/0.4ML SYR SUBCUT SCH (08:12)
[2016-12-27 13:16] LABS: PLATELET ESTIMATE SLIGHTLY INCREASED
[2016-12-27] MEDS: FAMOTIDINE 20MG TABLET PO SCH (21:59)
[2016-12-27] MEDS: POLYETHYLENE GLYCOL 3350 (17GM) 1 DOSE PACK PO SCH (21:59)
[2016-12-27] MEDS: SENNOSIDES/DOCUSATE SOD 8.6/50MG TABLET PO SCH (21:59)
[2016-12-27] MEDS: LORAZEPAM 0.5MG TABLET PO PRN (22:11)
[2016-12-28] VITALS (11 sets, daily range): BP systolic 106–148; BP diastolic 54–75
[2016-12-28] MEDS ORDERED: LORAZEPAM 0.5MG TABLET PO PRN (00:15)
[2016-12-28] MEDS: TRAZODONE HCL 100MG TABLET PO PRN (01:02)
[2016-12-28] MEDS: GUAIFENESIN 200MG/10ML SUGAR FREE UDC PO PRN (05:04)
[2016-12-28] MEDS: BACLOFEN 10MG TABLET PO SCH ×2 (05:05→14:16)
[2016-12-28] MEDS: DEXAMETHASONE 2MG TABLET PO SCH ×2 (05:05→17:37)
[2016-12-28 06:00] LABS: CLARITY URINE CLEAR (CLEAR); COLOR URINE YELLOW (YELLOW); GLUCOSE URINE NEGATIVE (NEGATIVE); KETONES URINE NEGATIVE (NEGATIVE); LEUKOCYTE ESTERASE URINE NEGATIVE (NEGATIVE); NITRITE URINE NEGATIVE (NEGATIVE); OCCULT BLOOD URINE NEGATIVE (NEGATIVE); PH URINE 5.5 (4.5-8.0); PROTEIN URINE NEGATIVE (NEGATIVE); SPECIFIC GRAVITY URINE 1.007 (1.005-1.030); UROBILINOGEN URINE 0.2 E.U./dL (0.2-1.0)
[2016-12-28] MEDS: SODIUM CHLORIDE 0.9% 1,000 ML IV SCH ×2 (06:08→16:08)
[2016-12-28 06:43] LABS: HEMOGLOBIN. 9.9 g/dL (12.0-16.0); MEAN CORPUSCULAR HEMOGLOBIN 31.3 pg (28.0-32.0); MEAN CORPUSCULAR VOLUME 95.1 fL (81.0-99.0); MEAN PLATELET VOLUME 7.6 fl (7.4-10.4); PLATELET 371 x1000/uL (130-400); RED BLOOD CELL COUNT 3.16 mill/uL (4.2-5.4); RED CELL DISTRIBUTION WIDTH 14.3 % (11.6-14.6)
[2016-12-28 06:59] LABS: CARBON DIOXIDE 27 mEq/L (21-32); CHLORIDE 108 mEq/L (98-107)
[2016-12-28] MEDS ORDERED: HYDROCODONE/ACETAMINOPHEN 10/325MG TABLET PO PRN (07:15)
[2016-12-28] MEDS ORDERED: ACETAMINOPHEN 325MG TABLET PO PRN (07:15)
[2016-12-28] MEDS: BISACODYL 10MG SUPP PR SCH (08:53)
[2016-12-28] MEDS: GABAPENTIN 300MG CAPSULE PO SCH (08:53)
[2016-12-28] MEDS: ENOXAPARIN 40MG/0.4ML SYR SUBCUT SCH (08:55)
[2016-12-28] MEDS: CITALOPRAM HYDROBROMIDE 10MG TABLET PO SCH (08:57)
[2016-12-28] MEDS ORDERED: ASPIRIN 81MG TABLET PO SCH (09:00)
[2016-12-28] MEDS ORDERED: OXYCODONE HCL 5MG TABLET PO PRN (14:00)
[2016-12-28 16:33] LABS: PLATELET ESTIMATE NORMAL
[2016-12-28] MEDS: LORAZEPAM 0.5MG TABLET PO PRN (18:41)
== END 2016-12-28 18:50 | DRG 644 ==
LOC: 5EST 11:39
PROVIDERS: ADMIT Internal Medicine; ATTEND Internal Medicine
DX: E27.40 Unspecified adrenocortical insufficiency (principal); C81.90 Hodgkin lymphoma, unspecified, unspecified site; G82.20 Paraplegia, unspecified; R07.9 Chest pain, unspecified; I95.89 Other hypotension; R26.9 Unspecified abnormalities of gait and mobility; D72.829 Elevated white blood cell count, unspecified; F20.9 Schizophrenia, unspecified; F32.9 Major depressive disorder, single episode, unspecified; I50.9 Heart failure, unspecified; M79.7 Fibromyalgia; Z79.82 Long term (current) use of aspirin; Z79.899 Other long term (current) drug therapy; Z85.72 Personal history of non-Hodgkin lymphomas; Z86.011 Personal history of benign neoplasm of the brain; Z92.3 Personal history of irradiation; Z88.6 Allergy status to analgesic agent; Z88.5 Allergy status to narcotic agent; Z88.8 Allergy status to other drugs, medicaments and biological substances; Z91.018 Allergy to other foods; Z90.710 Acquired absence of both cervix and uterus
CPT/HCPCS: 36415; 71260; 80048; 80053; 81001; 81003; 82533; 82550; 82553; 82962; 83735; 84100; 84484; 85025; 87040; 93005; 94640; 97110; 97112; 97162; 97166; 97530; A4216; C1893; J1100; J1650; J2405; J7030; J7620; J8540; Q9967